=== PATIENT | male | born 1950 | race African-American/Black ===

== ENCOUNTER → 2023-03-07 | Outpatient (CLI) | payer BC | END | disposition home or self-care (01) | LOC: RAD 13:13 | PROVIDERS: ATTEND Podiatrist Foot & Ankle Surgery | DX: S92.812A Other fracture of left foot, initial encounter for closed fracture (principal); I73.9 Peripheral vascular disease, unspecified; I87.2 Venous insufficiency (chronic) (peripheral); L97.529 Non-pressure chronic ulcer of other part of left foot with unspecified severity; X58.XXXA Exposure to other specified factors, initial encounter; Y93.89 Activity, other specified; Y92.89 Other specified places as the place of occurrence of the external cause; Y99.8 Other external cause status | CPT/HCPCS: 73610; 73630 ==

== ENCOUNTER → 2023-03-11 | Outpatient (CLI) | payer BC | END | disposition home or self-care (01) | LOC: PVL 12:58 | PROVIDERS: ATTEND Podiatrist Foot & Ankle Surgery | DX: I73.9 Peripheral vascular disease, unspecified (principal); L97.329 Non-pressure chronic ulcer of left ankle with unspecified severity; E11.42 Type 2 diabetes mellitus with diabetic polyneuropathy | CPT/HCPCS: 93923; 93971 ==

== ENCOUNTER → 2023-07-28 | Outpatient (CLI) | payer BC | END | disposition home or self-care (01) | LOC: CT 09:05 | PROVIDERS: ATTEND Student in an Organized Health Care Education/Training Program | DX: S93.05XA Dislocation of left ankle joint, initial encounter (principal); M25.572 Pain in left ankle and joints of left foot; M25.472 Effusion, left ankle; M85.872 Other specified disorders of bone density and structure, left ankle and foot; X58.XXXA Exposure to other specified factors, initial encounter; Y93.89 Activity, other specified; Y92.89 Other specified places as the place of occurrence of the external cause; Y99.8 Other external cause status | CPT/HCPCS: 73610; 73630; 73700; 93922 ==